=== PATIENT | female | born 1995 | race Caucasian/White ===

== ENCOUNTER 2020-03-29 09:15 | Emergency (ER) | payer OTHER ==
[~2020-03-29 09:15] MED LIST: KEFLEX500 MG PO
[2020-03-29 10:39] LABS: HEMOGLOBIN 13.2 gm/dl (12.3-15.3); RED BLOOD COUNT 3.94 M/UL (4.00-5.10); WHITE BLOOD COUNT 7.2 K/UL (4.5-11.0)
[2020-03-29 11:06] LABS: BUN/CREATININE RATIO 9 (0-10)
== END 2020-03-29 13:03 | disposition home or self-care (01) ==
LOC: ER1 09:15
PROVIDERS: Emergency Medicine
DX: R25.9 Unspecified abnormal involuntary movements (principal); I49.8 Other specified cardiac arrhythmias; F17.200 Nicotine dependence, unspecified, uncomplicated
CPT/HCPCS: 80053; 80307; 81001; 83690; 84703; 85025; 93005; 96374; 99283; J2405